=== PATIENT | male | born 1945 | race American Indian/Alaskan Native ===

== ENCOUNTER 2019-11-10 11:47 | Emergency (ER) | payer MEDICARE, OTHER ==
[~2019-11-10] VITALS: Ht 177.8 cm; Wt 97.5 kg
[~2019-11-10 11:47] MED LIST: BLOOD PRESSURE MED; GLUCOPHAGE500 MG PO; LEVAQUIN500 MG PO
--- OUTSIDE RECORDS SUMMARY | 2019-11-10 11:50 | XMS ---
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 EVictorino VISIT COUNT (12 MO.) 1 [facility] TOTAL 1 NOTE: Visits indicate total known visits. ED/UCC VISIT TRACKING (12 MO.) 11/10/2019 11:49 [facility] TYPE: Emergency COMPLAINT: - POSS CONCUSSION INPATIENT VISIT TRACKING (12 MO.) No inpatient visits to display in this time frame [email or web address]
[2019-11-10] MEDS ORDERED: ONDANSETRON ODT8 MG PO (13:14)
== END 2019-11-10 13:31 | disposition home or self-care (01) ==
LOC: ED 11:47
DX: S06.0X0A Concussion without loss of consciousness, initial encounter (principal); E11.9 Type 2 diabetes mellitus without complications; I10 Essential (primary) hypertension; Z79.84 Long term (current) use of oral hypoglycemic drugs; W22.8XXA Striking against or struck by other objects, initial encounter
CPT/HCPCS: 70450; 99284-25